=== PATIENT | female | born 1990 | race African-American/Black ===

== ENCOUNTER 2020-05-16 08:43 | Inpatient (IN) ==
[2020-05-16] MEDS ORDERED: MEPERIDINE 50 MG/1 ML VIAL IV PRN (09:09)
[2020-05-16] MEDS ORDERED: LIDOCAINE 1% 50 ML VIAL MISC INJ ONE (09:09)
[2020-05-16] MEDS ORDERED: BUTORPHANOL 2 MG/ML VIAL IV PRN (09:09)
[2020-05-16] MEDS ORDERED: ONDANSETRON 4 MG/2 ML VIAL IV PRN (09:09)
[2020-05-16] MEDS ORDERED: OXYTOCIN/LR 20 UNIT/1,000 ML BAG IV ONE ×3 (09:11→10:18)
[2020-05-16] MEDS ORDERED: miSOPROStoL 200 MCG TABLET ONE (09:12)
[2020-05-16] MEDS ORDERED: METHYLERGONOVINE 0.2 MG/1 ML AMP ONE (09:12)
[2020-05-16] MEDS ORDERED: CARBOPROST TROMETHAMINE 250 MCG/ML AMP IM ONE (09:13)
[2020-05-16] MEDS ORDERED: LACTATED RINGERS 1,000 ML IV SCH (09:30)
[2020-05-16 10:09] LABS: Cord Venous Blood PCO2 46.5 MMHG; Cord Venous Blood PO2 31.3 MMHG
[2020-05-16] MEDS ORDERED: BISACODYL 10 MG SUPP RECTAL PRN (10:18)
[2020-05-16] MEDS ORDERED: RHO(D) IMMUNE GLOBULIN 300 MCG SYRINGE IM ONE (10:18)
[2020-05-16] MEDS ORDERED: LANOLIN 50% CREAM 0.3 OZ TUBE TOP PRN (10:18)
[2020-05-16] MEDS ORDERED: MEASLES/MUMPS/RUBELLA VACCINE 0.5 ML VIAL SUBCUT ONE (10:18)
[2020-05-16] MEDS ORDERED: ACETAMINOPHEN 325 MG TABLET PO PRN (10:18)
[2020-05-16] MEDS ORDERED: oxyCODONE/ACETAMINOPHEN 5-325 MG TABLET PO PRN ×2 (10:18)
[2020-05-16] MEDS ORDERED: IBUPROFEN 800 MG TABLET PO PRN (10:18)
[2020-05-16] MEDS ORDERED: WITCH HAZEL PADS 100/JAR TOP PRN (10:18)
[2020-05-16] MEDS ORDERED: DIPH/TET/ACEL PERT BOOSTER VACCINE 0.5 ML VIAL IM ONE (10:18)
[2020-05-16] MEDS ORDERED: HYDROCORTISONE 2.5% RECTAL CREAM 30 GM TUBE TOP PRN (10:18)
[2020-05-16] MEDS ORDERED: BENZOCAINE 20%/MENTHOL 0.5% SPRAY 56 GM CAN TOP PRN (10:18)
[2020-05-16 10:25] LABS: Basophils # 0.1 10*3/uL (0.0-0.2); Basophils % 0.4 % (0.0-0.8); Eosinophils # 0.4 10*3/uL (0.0-0.87); Eosinophils % 2.8 % (0.00-10.9); Hematocrit 38.9 VOL% (35.7-47.0); Hemoglobin 13.2 GM/DL (12.0-16.0); Immature Granulocytes % 1.1 %; Immature Granulocytes Absolute 0.17 #; Lymphocytes # 1.8 10*3/uL (1.4-4.0); Lymphocytes % 11.2 % (21.3-54.2); Mean Corpuscular HGB Conc 33.9 GM/DL (32-36); Mean Corpuscular Volume 84.7 FL (87-102); Mean Platelet Volume 10.9 FL (9.6-12.0); Monocytes % 7.2 % (1.7-12.7); Neutrophils % 77.3 % (38.7-73.9); Platelet Count 232 T/CUMM (130-400); Red Blood Count 4.59 MC/CUMM (3.8-5.5); Red Cell Distribution Width 15.3 % (9.3-17.3); White Blood Count 15.9 T/CUMM (4-12)
[2020-05-16 10:59] LABS: Albumin 2.9 G/DL (3.4-5.0); Bilirubin,Total 1.2 MG/DL (0.2-1.0); Calcium 8.8 MG/DL (8.5-10.1); Osmolality,Calculated 266.1 MOS/KG (273-304); Total Protein 7.4 G/DL (6.4-8.3)
[2020-05-16] MEDS: DOCUSATE SODIUM 100 MG CAPSULE PO SCH (23:46)
[2020-05-17 06:42] LABS: Basophils # 0.1 10*3/uL (0.0-0.2); Basophils % 0.4 % (0.0-0.8); Eosinophils # 0.3 10*3/uL (0.0-0.87); Hemoglobin 12.5 GM/DL (12.0-16.0); Immature Granulocytes % 0.8 %; Immature Granulocytes Absolute 0.12 #; Lymphocytes # 2.1 10*3/uL (1.4-4.0); Lymphocytes % 13.2 % (21.3-54.2); Mean Corpuscular HGB Conc 33.8 GM/DL (32-36); Mean Corpuscular Volume 85.6 FL (87-102); Mean Platelet Volume 10.1 FL (9.6-12.0); Monocytes % 6.8 % (1.7-12.7); Neutrophils % 76.8 % (38.7-73.9); Platelet Count 224 T/CUMM (130-400); Red Blood Count 4.32 MC/CUMM (3.8-5.5); Red Cell Distribution Width 15.4 % (9.3-17.3); White Blood Count 15.8 T/CUMM (4-12)
[2020-05-17] MEDS: CHOLECALCIFEROL 1,000 UNIT TABLET PO SCH (10:34)
[2020-05-17] MEDS: DOCUSATE SODIUM 100 MG CAPSULE PO SCH ×2 (10:34→21:05)
[2020-05-17] MEDS: MULTIVITAMIN (PRENATAL) TABLET PO SCH (10:34)
[2020-05-17] MEDS: FERROUS SULFATE 325 MG TABLET PO SCH (10:34)
[2020-05-17] MEDS ORDERED: RHO(D) IMMUNE GLOBULIN 300 MCG SYRINGE IM ONE (13:48)
[2020-05-17] MEDS ORDERED: MAGNESIUM HYDROXIDE SUSP 30 ML UDCUP PO PRN (21:33)
[2020-05-18 05:29] LABS: Basophils # 0.1 10*3/uL (0.0-0.2); Basophils % 0.6 % (0.0-0.8); Eosinophils # 0.7 10*3/uL (0.0-0.87); Eosinophils % 5.3 % (0.00-10.9); Immature Granulocytes % 0.9 %; Immature Granulocytes Absolute 0.11 #; Lymphocytes # 2.7 10*3/uL (1.4-4.0); Lymphocytes % 21.4 % (21.3-54.2); Mean Corpuscular HGB Conc 33.3 GM/DL (32-36); Mean Corpuscular Volume 86.5 FL (87-102); Mean Platelet Volume 10.2 FL (9.6-12.0); Monocytes % 7.6 % (1.7-12.7); Neutrophils % 64.2 % (38.7-73.9); Platelet Count 215 T/CUMM (130-400); Red Blood Count 4.16 MC/CUMM (3.8-5.5); Red Cell Distribution Width 15.7 % (9.3-17.3); White Blood Count 12.6 T/CUMM (4-12)
[2020-05-18 07:34] VITALS: BP 115/64
[2020-05-18] MEDS: FERROUS SULFATE 325 MG TABLET PO SCH (09:00)
[2020-05-18] MEDS: MULTIVITAMIN (PRENATAL) TABLET PO SCH (11:50)
[2020-05-18] MEDS: DOCUSATE SODIUM 100 MG CAPSULE PO SCH (11:50)
[2020-05-18] MEDS: CHOLECALCIFEROL 1,000 UNIT TABLET PO SCH (11:51)
== END 2020-05-18 11:50 | disposition home or self-care (01) | DRG 560 ==
LOC: N.LDOUT 08:43 → N.LD 08:45 → N.OB 13:10
PROVIDERS: ADMIT Obstetrics & Gynecology; ATTEND Obstetrics & Gynecology